=== PATIENT | male | born 1960 | race African-American/Black ===

== ENCOUNTER 2022-02-16 07:38 | Emergency (ER) | payer MEDICAID ==
[~2022-02-16] VITALS: Ht 185.4 cm; Wt 95.0 kg
[2022-02-16 09:55] LABS: CLARITY URINE CLEAR (CLEAR); COLOR URINE YELLOW (YELLOW); KETONES URINE TRACE (NEGATIVE); LEUKOCYTE ESTERASE URINE 2+ (NEGATIVE); NITRITE URINE NEGATIVE (NEGATIVE); OCCULT BLOOD URINE NEGATIVE (NEGATIVE); PH URINE 5.5 (4.5-8.0); PROTEIN URINE NEGATIVE (NEGATIVE); UROBILINOGEN URINE 0.2 E.U./dL (0.2-1.0)
[2022-02-16] MEDS ORDERED: CEFP200T13 MT (11:58)
[2022-02-16] MEDS ORDERED: IBUP-2028 MT (11:58)
[2022-02-16 12:20] VITALS: BP 135/78
== END 2022-02-16 12:21 | disposition home or self-care (01) ==
LOC: ER 07:38
DX: K40.90 Unilateral inguinal hernia, without obstruction or gangrene, not specified as recurrent (principal); N39.0 Urinary tract infection, site not specified; M10.9 Gout, unspecified; G62.9 Polyneuropathy, unspecified; F17.210 Nicotine dependence, cigarettes, uncomplicated; Z98.890 Other specified postprocedural states
CPT/HCPCS: 73562; 76870; 81003; 82962; 87086; 93971; 93976; 99285; Z7610